=== PATIENT | male | born 1990 | race Caucasian/White ===

== ENCOUNTER 2025-03-26 23:37 | Inpatient (IN) | payer MEDICARE, SELFPAY ==
[2025-03-26] VITALS (8 sets, daily range): BP systolic 103–126; BP diastolic 70–85
[2025-03-26] MEDS: NSS 1000 IV (20:49)
--- NOTE | 2025-03-26 20:50 | ED.GENMED ---
History of Present Illness
General
Chief Complaint: Fever
Source: family (Mother)
Exam Limitations: non verbal-adult
Time Seen by Provider: 03/26/25 20:38
Nursing documentation reviewed up to this point in time: agreed with
History of Present Illness
History of Present Illness:
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 Mother reports that
patient started with some shaking last night but did not have a fever at the time, today developed a fever with a max of 103 �F at home. Was given Tylenol to treat fever. Mother has not noticed any other specific symptoms such as respiratory
issues, vomiting or diarrhea�in fact patient has had some constipation recently and required an enema yesterday. He has been dealing with healing pilonidal cyst/abscess but mother says this is generally improving.
Past History
Past History
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
Review of Systems
Review of Systems
Unable to obtain full review of systems at this time due to: non-verbal
All Other Systems: Not applicable
Phy Exam
Physical Exam
Physical Exam:
General: Awake, chronically ill-appearing
Head: Normocephalic, atraumatic
Eyes: Conjunctiva normal
Throat: Airway intact, mucous membranes slightly dry
Neck: Trachea midline
Lungs: Mild tachypnea, diminished at the lung bases
Heart: Tachycardia with regular rhythm, no murmurs, gallops, or rubs
Abd: Soft, non distended
Rectal: Some very small amount of redness in the sacrum but no large wounds�tiny punctate scar from old pilonidal cyst/abscess
Extremities: Warm and well-perfused
Scores
Heart Failure Risk
Heart Failure Risk Score: Not Applicable
Heart Score for Chest Pain Patients
STEMI patient?: Not applicable
Withdrawal Assessment of Alcohol
Withdrawal Assessment Completed?: Not applicable
Sepsis
Sepsis Screening
Sepsis Assessment: Sepsis
Sepsis Screen
Sepsis Screen: Sepsis
Date: 03/26/25
Time: 22:44
Course
Orders/Labs/Results
Orders:
Orders
03/26/25 20:38
Electrocardiogram (*1) Urgent
Reason for Study: Tachycardia
EKG- Treatment ONCE
0.9% Sodium Chloride 1000 ml [Nss] 1,000 ml IV BOLUS
Ibuprofen [Motrin] 400 mg PO NOW STA
CR Chest Portable - 1 View Urgent
Comment:
Reason For Exam: fever
Reason Study Needs to be Portable: Unable to Transport
03/26/25 20:41
Complete Blood Count/With Diff Urgent
Comprehensive Metabolic Panel Urgent
TSH Reflex To Free T4 Urgent
Blood Culture Q30M
DAVID Source: Blood/Venous
Specimen Description:
03/26/25 20:42
COVID-19 Antigen Urgent
Source: Nasal Swab
Lactate Level [Lactic Acid] Urgent
Influenza A+B Rapid Molecular Urgent
DAVID Source: Nasal Swab
Specimen Description:
03/26/25 20:49
Ketorolac [Toradol] 15 mg IV NOW STA
03/26/25 20:54
Cefepime HCl [Maxipime] 2,000 mg IV NOW STA
03/26/25 21:02
Vancomycin [Vancocin] 1,500 mg 0.9% Sodium Chloride 500 ml [Nss] 500 ml IV NOW
03/26/25 21:11
Urinalysis Reflex To Culture Urgent
Date Specimen was Collected: 03/26/25
Time Specimen was Collected: 20:40
Urine Microscopic Reflex Cult Urgent
Blood Culture Q30M
DAVID Source: Blood/Venous
Specimen Description:
Urine Culture Urgent
DAVID Source: U
Specimen Description:
Date Specimen was Collected: 03/26/25
Time Specimen was Collected: 20:40
03/26/25 21:15
Sterile Water [Sterile Water For Injection] 10 ml .ROUTE .[facility]
03/26/25 21:19
CT Chest/abd/pel W Iv Cont Urgent
Comment:
Reason For Exam: sepsis, unknown source, non verbal
Abnormal Lab Results
03/26/25 03/26/25 03/26/25
20:41 20:42 21:11
WBC 18.3 H 10^3/uL
(4.8-10.8)
Abs Immat Gran (auto) 0.2 H 10^3/uL
(0-0.05)
Absolute Neuts (auto) 16.2 H 10^3/uL
(1.4-6.5)
Absolute Lymphs (auto) 0.8 L 10^3/uL
(1.2-3.4)
Absolute Monos (auto) 1.1 H 10^3/uL
(0.1-0.6)
Immature Gran % 1.0 H %
(0-0.5)
Neutrophils % 88.4 H %
(42.2-75.2)
Lymphocytes % 4.3 L %
(20.5-51.1)
Glucose 147 H mg/dl
(70-99)
Lactic Acid 2.5 H mmol/L
(0.7-2.0)
Ur Occult Blood Reflex 2+ A
(Negative)
Leukocyte Esterase Rfl 3+ A
(Negative)
Urine RBC 7-10 A /HPF
(0-2)
Urine WBC (Reflex) 80-90 A /HPF
(0-5)
Urine Bacteria (Reflex) Moderate A
(Negative)
Urine Albumin (Reflex) 2+ A
(Neg - Trace)
03/26/25 20:41
03/26/25 20:41
Vital Signs
Initial and Last Documented VS:
Initial Vital Signs
Pulse
112
03/26/25 20:03
Last Documented Vital Signs
Temp Pulse Resp BP Pulse Ox
38.3 C H 110 20 111/80 96
03/26/25 22:29 03/26/25 22:29 03/26/25 22:29 03/26/25 20:33 03/26/25 22:29
MDM/Problems Addressed
Differential Diagnosis Includes:
Viral syndrome, pneumonia including aspiration, intra-abdominal infection, UTI
MDM/Problems Addressed:
35-year-old male presents for evaluation of fever developed over the past 24 hours. Vitals were significant for tachycardia, mild tachypnea and fever. Normotensive, not hypoxic. Exam as above. Will plan to check labs including a CBC and a CMP,
lactate and blood cultures. Viral swabs. Chest x-ray. Urinalysis. Low threshold for CT abdomen if no clear infectious source identified. Provide fluids and empiric antibiotics. Anticipate admission.
Labs reviewed: CBC shows leukocytosis to 18.3. CMP no clinically significant abnormalities. Lactate slightly elevated at 2.5�fluids in progress. Chest x-ray shows no acute disease. Viral swabs negative. UA pending. Will proceed with CT
chest/abdomen/pelvis to better evaluate for infectious source.
CT reviewed by me appears to show cystitis question mild colitis but no other acute abnormalities noted�awaiting final radiology report. His urinalysis is positive for infection with bacteria and pyuria. He already received broad-spectrum
antibiotics, IV fluids. Will admit for continued care�discussed case with hospitalist for admission.
Chronic conditions affecting care:
Advanced [place]'s disease
*Radiology
Radiology exam reviewed: preliminary read by ED provider
*Pulse Oximetry
SaO2: 96
Oxygen Mode of Delivery: Room air
Patient hypoxic: no (96%)
*EKG
Interpreted by ED Provider?: Yes
Heart Rate: 108
Rate: tachycardiac
Rhythm: sinus and sinus tachycardia
[place]: normal axis
Interval: normal interval
QRS Pattern: normal QRS
Ischemia: no ischemia
*Critical Care Note
Total Time (30-74mins, 75-104mins- exclusive of procedures): Not Applicable
Data Reviewed
Review of Other/Old Records Reveals: Labs and Records
Source: records and family
Patient Management
Discussion with other providers: Hospitalist (Discussed with hospitalist)
Escalation/DeEscalation of care consider admission/obs:
Admission indicated
ED Attending Note
-
Portions of this chart may have been created with voice recognition software.� Occasional wrong word or��sound alike� substitutions may have occurred due to the inherent limitations of voice recognition software.
Discharge Plan
Departure
Patient Disposition: Admit
Date of Disposition: 03/26/25
Time of Disposition: 22:43
Admit to doctor: Vitor
Presentation/result/management discussed w/ accepting MD/DO: Hospitalist
Discharge Problem:
Acute UTI, Sepsis
Interventions
Interventions:
*Risk Screen - Suicide Last Done: 03/26/25 20:24
*General Assessment Last Done: 03/26/25 21:44
*Neglect/Abuse Screening Last Done: 03/26/25 20:24
*ED- Fall Risk Assessment Last Done: 03/26/25 20:24
*ED COVID-19 Vaccine History Last Done: 03/26/25 20:24
*ED Influenza Vaccine History Last Done: 03/26/25 20:24
ED- Neurological Assessment Last Done: 03/26/25 21:44
ED-Skin Assessment Last Done: 03/26/25 21:44
Discharge Date and Time
Print Language: CONGOLESE
[2025-03-26 20:54] LABS: Hematocrit 45.0 % (39.0-52.0); Hemoglobin 15.1 g/dL (13.0-18.0); Mean Corp Hgb Conc. 33.6 g/dL (33.0-37.0); Mean Corpuscular Volume 85.1 fL (80.0-94.0); Nucleated Red Blood Cells % 0 % (-); Platelet Count 247 10^3/uL (130-400); Red Cell Dist. Width 12.2 % (11.5-14.5)
[2025-03-26] MEDS: TORADOL 15 MG IV (20:56)
[2025-03-26 21:12] LABS: COVID-19 Antigen Negative (Negative)
[2025-03-26 21:13] LABS: ALT (SGPT) 29 U/L (0-50); AST (SGOT) 29 U/L (17-59); Albumin 4.9 g/dl (3.5-5.0); Alkaline Phosphatase 79 U/L (38-126); Blood Urea Nitrogen 10 mg/dl (9-20); Calcium 9.7 mg/dl (8.4-10.2); Carbon Dioxide 27 mmol/L (22-30); Chloride 104 mmol/L (98-107); Estimated Creatinine Clearance 85 ml/min; Glucose 147 mg/dl (70-99); Potassium 3.8 mmol/L (3.5-5.1); Sodium 142 mmol/L (135-145); Total Protein 8.1 g/dl (6.3-8.2); eGFR > 60.00
[2025-03-26] MEDS: MAXIPIME 2000 MG IV (21:18)
[2025-03-26] MEDS: VANCOCIN 530 MG IV (21:19)
[2025-03-26 21:22] LABS: Urine Character Cloudy (Clear)
[2025-03-26 21:37] LABS: Urine Squamous Cell 0-2 /LPF (Few); Urine White Cell 80-90 /HPF (0-5)
--- NOTE | 2025-03-26 22:57 | HPS.HSE ---
Family Physician
-
Family Physician: Angelica Brower
Chief Complaint
-
fever
History of Present Illness
Patient is a 35-year-old male with past medical history significant for Dion Disease who presented to [facility] ED for evaluation of fever. Patient mother at bedside who assisted with HPI. 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
She reports that last evening patient was moaning but no fevers or other symptoms observed. By this afternoon patient had fever with T-max 103 and rigors. She states he had a UTI several years ago but was not this bad. She states since December he has
been treated for PNA and influenza and now a UTI. She is primary caregiver with 24-hour aides for assistance. Patient requires enemas every 3 days for bowel movement, last enema this morning and was effective.
Medical History
Past Medical History
Past Medical History: Reports Other
Additional Past Medical History:
[place] Disease
Past Surgical History: Reports None
Social History
Unable to obtain full social history at this time due to: Patient Non-verbal
Tobacco: Non-smoker
Alcohol: None
Drug: None
Personal: Single
Living: With Family
Employment: Disabled
Family History
Family History: Not pertinent
Allergies / Home Medications
Allergies reflects when Allergies were last updated in [facility].
Home Medications with original date entered in [facility]
Allergy/Medication List:
Medications on admission are unable to be verified or confirmed at this time.
If medication reconciliation has not been performed, why?: Other (nursing to review with patient mother )
Review of Systems
-
History Source: Family
Constitutional: Reports Fever and Chills
EENT: Denies Sore Throat
Respiratory: Denies Cough or Trouble Breathing
Cardiac: Denies Chest Pain, Diaphoresis, Palpitations or Syncope
Abdomen/GI: Reports Constipated; Denies Abdominal Pain, Nausea, Vomiting or Diarrhea
: Denies Dysuria, Frequency or Urgency
Musculoskeletal: Denies Joint Swelling
Skin: Denies Rash
Neurological: Denies Dizzy, Headache, Weakness or Numbness
Physical Exam
Vital Signs
Vital Signs
Temp Pulse Resp BP Pulse Ox
100.9 F H 110 20 111/80 96
03/26/25 22:29 03/26/25 22:29 03/26/25 22:29 03/26/25 20:33 03/26/25 22:29
Physical Exam
General: Appears Chronically Ill and Cachectic
HEENT: NormoCephalic and Atraumatic
Respiratory: Rhonchi (scattered ) and Decreased Breath Sounds
Cardiac: S1/S2, Regular Rhythm and Tachycardia; No Murmur, Rub or Gallop
GI: Soft, Non Tender, Non Distended and Normal Bowel Sounds
Musculoskeletal: No Clubbing, No Cyanosis and No Edema
Skin: Warm and IV/Catheter Site
Neuro: Sedated
Laboratory Results
-
03/26/25 20:41
03/26/25 20:41
Laboratory Results
Lactic Acid 2.5 mmol/L (0.7-2.0) H 03/26/25 20:42
Total Bilirubin 0.6 mg/dl (0.2-1.3) 03/26/25 20:41
AST 29 U/L (17-59) 03/26/25 20:41
ALT 29 U/L (0-50) 03/26/25 20:41
Alkaline Phosphatase 79 U/L (38-126) 03/26/25 20:41
Data Reviewed
-
CT Scan: Report Reviewed by me (Chest/Abd/Pel: Multiple small nodular opacities within the left lower lobe of the lung, which is likely a small airway pneumonia. Mild dependent atelectasis in the posterior lungs bilaterally. The wall the urinary
bladder appears mildly diffusely thickened, suggesting possibility of cystitis. Smal)
Lab Data: Labs Reviewed by me (WBC 18.3, Neut 88.4, Lactic 2.5)
Impression/Plan
-
IMPRESSION/PLAN:
#sepsis 2/2 complicated UTI vs. PNA vs. cystitis vs. proctitis
WBC 18.3, Neut 88.4, Lactic 2.5
EKG: SINUS TACHYCARDIA
T WAVE ABNORMALITY, CONSIDER ANTEROLATERAL ISCHEMIA
Chest/Abd/Pel CT: Multiple small nodular opacities within the left lower lobe of the lung, which is likely a small airway pneumonia.
Mild dependent atelectasis in the posterior lungs bilaterally.
The wall the urinary bladder appears mildly diffusely thickened, suggesting possibility of cystitis. Small focus of air within the right anterior bladder, most likely from instrumentation.
Mild enhancement and thickening of the wall the inferior rectum, suggestive of proctitis. The appendix appears normal with no evidence for biliary ductal dilation.
Influenza: negative
Covid: negative
UA: indicative of UTI
Urine Cx: pending
Blood Cx: pending
- Admit to IMU
- IV Cefepime and Vanco
- IVF NSS 80cc/hr
- supportive care
#[place]ston Disease
*home med rec pending, continue home regimen as indicated*
Code status: DNR
DVT prophylaxis: heparin sq
[2025-03-26] MEDS: OFIRMEV 100 IV (23:04)
--- NOTE | 2025-03-26 23:14 | W.PN.UPDATE ---
Update Note
Progress Note Update
I could not get any information from the patient is very letahrgic
Information gathered by chart review and speaking with the ER staff.
This note serves as an addendum to the H&P by yard switcher ALISHA�
Deepa Rod
HPI
35M HX advanced Downey's disease, nonverbal and totally dependent for ADLs seen at ER
- pw his mother who is his primary caregiver for evaluation of fever.
- Mother reports that patient started with some shaking last night but did not have a fever at the time
- today developed a fever with a max of 103 �F at home.
- Was given Tylenol to treat fever.
- Mother has not noticed any other specific symptoms such as respiratory issues, vomiting or diarrhea�in fact patient has had some constipation recently and required an enema yesterday.
- He has been dealing with healing pilonidal cyst/abscess but mother says this is generally improving.
PHX;l see above
Relevant VS
Vital Signs
Temp Pulse Resp BP Pulse Ox
100.9 F H 110 20 111/80 96
03/26/25 22:29 03/26/25 22:29 03/26/25 22:29 03/26/25 20:33 03/26/25 22:29
PE
Gen: Awake, chronically ill-appearing
HEENT: anicteric
Neck: supple
Lungs: CTA
Cor: RRR S S2
Abdomen:�soft
TRICIA per ER - very small amount of redness in the sacrum. N large wounds
iny punctate scar from old pilonidal cyst/abscess
MS: warm
Relevant Data
03/26/25
20:41
WBC 18.3 H
Hgb 15.1
Plt Count 247
03/26/25 03/26/25
20:41 20:42
Creatinine 0.9
eGFR > 60.00
Lactic Acid 2.5 H
03/26/25
21:11
Urine Nitrite (Reflex) Negative
Leukocyte Esterase Rfl 3+ A
Urine RBC 7-10 A
Urine WBC (Reflex) 80-[address] AP
- Multiple small nodular opacities within the left lower lobe of the lung, which is likely a small airway pneumonia.
- Mild dependent atelectasis in the posterior lungs bilaterally.
- The wall the urinary bladder appears mildly diffusely thickened, suggesting possibility of cystitis.
Small focus of air within the right anterior bladder, most likely from instrumentation.
- Mild enhancement and thickening of the wall the inferior rectum, suggestive of proctitis.
- The appendix appears normal with no evidence for biliary ductal dilation.
Last hospitalist admission: Date of Admission: 04/29/23 - Date of Discharge: 04/30/23
Principal Diagnosis: Fever, likely due to viral URI
Chronic Diagnoses: Downey's disease
ASSESSMENT & PLAN
Pending Rx reconciliation
Severe sepsis ( T > 100.5, HR > 90, WCC > 10, LA > 2 ) due to presumed male complicated UTI
- Other possible sources: small airway PNA, cystitis, proctitis
- associated hypoactive lethargic TME
- BP stable.
- UCx and BCx sent Cultures sent.
- CT C/A/P done
- looks like UTI, maybe some colitis
- Pending CT final report pending
- IVF
- empiric IV vanco/cefepime.
- BCx and UCx sent
HX advanced Dion's disease, nonverbal and totally dependent for ADL
- very involved Mother at bed side
- HX acute behavioral dysfunction
- If any agitation , may need 1 to 1 on top of meical restraints
DVT Px: SQH
Code: DNR
IMU
[2025-03-26] MEDS: NSS 500 IV (23:17)
[2025-03-27] VITALS (39 sets, daily range): BP systolic 82–153; BP diastolic 51–96; BMI 20.3
[2025-03-27] MEDS: NSS 1000 IV ×4 (00:53→20:13)
[2025-03-27] MEDS: HEPARIN 5000 UNITS SC ×2 (01:43→09:23)
[2025-03-27] MEDS: STERILE WATER FOR INJECTION 10 ML IV ×4 (01:44→20:06)
[2025-03-27] MEDS: MAXIPIME 1000 MG IV ×4 (01:44→20:06)
[2025-03-27] MEDS: NSS 500 IV ×2 (01:52→04:34)
[2025-03-27 06:47] LABS: Hematocrit 32.4 % (39.0-52.0); Hemoglobin 10.9 g/dL (13.0-18.0); Mean Corp Hgb Conc. 33.6 g/dL (33.0-37.0); Mean Corpuscular Volume 84.2 fL (80.0-94.0); Platelet Count 200 10^3/uL (130-400); Red Cell Dist. Width 12.4 % (11.5-14.5)
[2025-03-27 07:09] LABS: Blood Urea Nitrogen 9 mg/dl (9-20); Calcium 8.0 mg/dl (8.4-10.2); Carbon Dioxide 22 mmol/L (22-30); Chloride 114 mmol/L (98-107); Estimated Creatinine Clearance 110 ml/min; Glucose 104 mg/dl (70-99); Potassium 3.7 mmol/L (3.5-5.1); Sodium 139 mmol/L (135-145); eGFR > 60.00
--- NOTE | 2025-03-27 08:22 | PHA.VAN.IN ---
Assessment
- Assessment
Renal Function: Appears similar to baseline
Concomitant Antimicrobials: cefepime
AUC Dosing Plan
- Dosing Variables
Dosing Weight (kg): 53
Dosing CrCl (ml/min): 110
Vd coefficient (L/kg): 0.7
- Empiric Dosing
Initial / Loading Dose: 1500mg - 03/26 21:19
Maintenance Regimen: Vanc 1000mg Q12H - give 500mg x1 now then start at 1800
Estimated AUC (mcg*h/mL): 590
Estimated Peak (mcg*h/mL): 39.5
Estimated Trough (mcg/ml): 13.8
Estimated Half Life (H): 7.2
Regimen predicts values at higher end of range but given age, expect patient will clear more than predicted by population PK
- Monitoring
No levels ordered at this time: consider levels in next few days
Pharmacokinetics Vancomycin I
- -
Patient Age: 35
Patient Sex: Male
Vancomycin Day #: 1
Indication: Genito-Urinary Tract
Requesting Provider: Armando Rod
Pertinent Antimicrobial Allergies:
amoxicillin/clavulanic acid - unknown
clarithromycin - unknown
Height / Weight:
Height 5 ft 4 in
Actual Weight 53.1 kg
Pertinent Past Medical History: [place]'s disease
- Vital Signs / Lab Results
Temp Pulse Resp BP Pulse Ox
99.6 F 96 17 95/62 93
03/27/25 06:08 03/27/25 08:00 03/27/25 08:00 03/27/25 08:00 03/27/25 08:00
Lab Results - Hematology
03/26/25 03/27/25
20:41 06:16
WBC 18.3 H 21.4 H
Lab Results - Chemistry
03/26/25 03/27/25
20:41 06:16
BUN 10 9
Creatinine 0.9 0.7
Estimated Creat Clear 85 110
Albumin 4.9
03/26/25 03/27/25
20:42 07:15
Lactic Acid 2.5 H 1.1
Lab Results - Urine
03/26/25
21:11
Urine Nitrite (Reflex) Negative
Leukocyte Esterase Rfl 3+ A
Urine WBC (Reflex) 80-90 A
Ur Squamous Epith Cells 0-2
Urine Bacteria (Reflex) Moderate A
Microbiology Results
03/26/25 20:42 Influenza Types A & B (LUZ ELENA) - Final
Nasal Swab Negative for Influenza A & B, NAAT
Negative results must be combined with clinical observations
and patient history.
Nucleic Acid Amplification test (NAAT)performed on the
[employer] platform.
--- NOTE | 2025-03-27 09:29 | W.PN.HOSP.TC ---
Today's Communication/Plan
-
Total Critical Care Time__55___ minutes. I was immediately available to the patient and staff. I personally examined, reviewed labs, diagnostic images/reports, interpretations, treatment plans, discussed patient care with other providers and
family or caregivers (if patient is unable to make decisions), entered orders as appropriate and documented the medical record.
Assessment / Plan
Assessment / Plan
Impression
Severe sepsis.
Septic shock with hypotension not responding to IV fluid bolus
Lactic acidosis
Toxic metabolic encephalopathy.
Suspect severe aspiration syndrome
Urinary retention
Conditions prior to admission
[place] disease.
Premature .
Functional quadriplegia.
Right eye blindness.
Severe malnutrition with BMI of [address] chest/abdomen/pel
IMPRESSION: Multiple small nodular opacities within the left lower lobe of the lung, which is likely a small airway pneumonia.
Mild dependent atelectasis in the posterior lungs bilaterally.
The wall the urinary bladder appears mildly diffusely thickened, suggesting possibility of cystitis. Small focus of air within the right anterior bladder, most likely from instrumentation.
Mild enhancement and thickening of the wall the inferior rectum, suggestive of proctitis. The appendix appears normal with no evidence for biliary ductal dilation.
Plan
Severe sepsis with septic shock not responding to initial IV fluid bolus
Lactic acidosis.
Presentation with fever and altered mental status suggestive for toxic metabolic encephalopathy.
Possible sources most likely aspiration syndrome/aspiration pneumonia (CT with evidence of left lower lobe infiltrate)
Possible UTI given abnormal urinalysis and history of retention
Possible stercoral colitis/proctitis given chronic constipation.
Transferred to ICU
Initiated on broad-spectrum antibiotics including vancomycin and cefepime pending cultures
Strict aspiration precautions with NPO. Speech and swallow evaluation
Bladder scan, if recurrent retention, will require Johns catheter
Continue isotonic IV fluids
Given persistent hypotension, start Lavelle-Synephrine titrating to MAP 55-60
Check cortisol level. Consider pulsed dose of systemic steroids
Trend lactic acid
Upper Inspector consultation.
[place] disease.
Mother reports premature .
Functional quadriplegia.
Preadmission neurologic regimen: Alprazolam, Lexapro, Seroquel, risperidone, Topamax, trazodone. Held due to acute state as well as aspiration risk. Monitor mental status closely. Consider IV benzodiazepines if agitation or symptoms of
benzodiazepine withdrawal. Potential for multiple interactions not limited to CONFERENCE SERVICES MANAGER suppression. May consider neurology/psychiatry evaluation for optimizing regimen once hemodynamically stable and able to have oral intake.
DNR.
DVT prophylaxis heparin
Anticipated Discharge: > 48 hours
Subjective/Interval History
-
Date of Service: March 27, 2025
Objective Data
-
Labs:
Laboratory Results
03/27/25
06:16
WBC 21.4 H
Hgb 10.9 L D
Hct 32.4 L
Plt Count 200
Sodium 139
Potassium 3.7
Chloride 114 H
Carbon Dioxide 22
BUN 9
Creatinine 0.7
Glucose 104 H
Calcium 8.0 L D
Vital Signs:
Vital Signs
Temp Pulse Resp BP Pulse Ox
99.6 F 96 17 95/62 93
03/27/25 06:08 03/27/25 08:00 03/27/25 08:00 03/27/25 08:00 03/27/25 08:00
I&O
03/26/25 03/27/25 03/28/25
06:59 06:59 06:59
Output Total 825 / 825
Balance -825 / -825
Physical Exam
-
General: Well Developed and No Apparent Distress
HEENT: Normocephalic, Atraumatic and Moist Mucous Membranes
Respiratory: Rhonchi and Decreased Breath Sounds; Negative Wheezes
Cardiac: Regular Rhythm and S1/S2; Negative Murmur, Rub or Gallop
GI: Soft, Nontender, Nondistended and Normal Bowel Sounds; Negative Organomegaly
Rectal: Deferred by Provider
Musculoskeletal: No Clubbing, No Cyanosis and No Edema
Skin: Negative Rash
Neuro: Other (Lethargic. Noncommunicative)
[2025-03-27] MEDS: VANCOCIN HCL 500 MG 100 IV (09:30)
[2025-03-27 10:46] LABS: Glucose - Point of Care 114 mg/dl (70-99)
--- NOTE | 2025-03-27 11:09 | CON.INTV ---
Consultation
Consultation Request
Date/Time Consultation Requested: 03/27/25, 09:29
Date/Time Consultation Performed: 03/27/25, 11:00
Medical History
-
Chief Complaint: Fevers, shaking
History of Present Illness:
Patient is a 35-year-old M with a PMH notable for [place]'s disease (advanced stage, nonverbal, unable to perform ADLs without assistance), chronic constipation, recent infected pilonidal cyst, recent aspiration pneumonia, who presented 03/26 with
fever and worsening shaking from home, admitted for severe sepsis.
On presentation, patient was found to have fever to 101.9, WBC elevated to 18.3, lactate elevated to 2.5. UA with elevated WBCs, leuk esterase, albumin, moderate bacteria. CXR with LLL infiltrate. CTAP: Multiple small nodular opacities within the
left lower lobe of the lung, which is likely a small airway pneumonia. Mild dependent atelectasis in the posterior lungs bilaterally. The wall the urinary bladder appears mildly diffusely thickened, suggesting possibility of cystitis. Small focus of
air within the right anterior bladder, most likely from instrumentation. Mild enhancement and thickening of the wall the inferior rectum, suggestive of proctitis. The appendix appears normal with no evidence for biliary ductal dilation.
Per mom - who is very involved in patient's daily ADLs/care, along with home health aides -patient began to have fevers at home with worsening shaking of upper extremities; she gave him Tylenol and came to hospital. Patient has had no coughing at
home. Sometimes he is choke on food. Mom states special pur�ed diet for patient. Patient is nonverbal, not well able to express symptoms. Per mom, has not endorsed any specific localizing pain to palpation at home. Patient does have chronic
urinary retention, at times requiring straight catheterization at home. He typically wears a condom catheter draining to leg bag when out of the house. However, he may go more than half the day without urinating, and will require straight
catheterization. Per mom, this is closely tied with his chronic constipation for which he requires regularly scheduled enemas. He was last treated for a UTI 3 years ago. States that they are very vigilant about pressure ulcer prevention and
checking his skin. States that
The patient was recently admitted in December for management of presumed aspiration pneumonia and finished antibiotic course for that. Per mom, he just finished taking course of clindamycin 2 weeks ago. He also was recently seen by [facility]
colorectal surgery for infected pilonidal cyst. Mom has been applying clotrimazole cream and mupirocin ointment to pilonidal/rectal fissure area, with improvement in erythema following the clotrimazole cream. Denies any purulent drainage from the
area. Unable to ascertain if there has been acute worsening or improvement in erythema, but sounds like not improvement.
On 03/27, patient was transferred to ICU due to low BP not responding to IVF bolus, lactic acidosis, altered mental status. Roller Die Cutting Machine Operator consulted for ongoing management. Consults below.
Past Medical History
Past Medical History: Other (tammy's disease )
Social History
Tobacco: Non-smoker
Alcohol: None
Drug: None
Living: With Family and Other (home nursing)
Family History
Family History: Reviewed & Not Pertinent
Allergies / Home Medications
Allergies
Allergy/AdvReac Type Severity Reaction Status Date / Time
amoxicillin (From Augmentin) Allergy Unknown Verified 04/29/23 20:23
clarithromycin (From Biaxin) Allergy Unknown Verified 04/29/23 20:23
clavulanic acid (From Allergy Unknown Verified 04/29/23 20:23
Augmentin)
lorazepam (From Ativan) Allergy Unknown Verified 04/29/23 20:23
metformin Allergy Unknown Verified 04/29/23 20:23
Home Medications
�Medication �Instructions �Recorded �Confirmed �Last Taken �Type
acetaminophen 325 mg tablet 325 mg PO QHS 03/26/25 03/26/25 Unknown History
(Tylenol)
acetaminophen 325 mg tablet 500 mg PO Q8AM 03/26/25 03/26/25 Unknown History
(Tylenol)
alprazolam 0.25 mg tablet 0.25 mg PO BID 03/26/25 03/26/25 Unknown History
alprazolam 1 mg tablet 1 mg PO BID 03/26/25 03/26/25 Unknown History
escitalopram oxalate 10 mg tablet 15 mg PO R Q48H 03/26/25 03/26/25 Unknown History
(Lexapro)
escitalopram oxalate 20 mg tablet 20 mg PO Q48H 03/26/25 03/26/25 Unknown History
(Lexapro)
melatonin 10 mg tablet 10 mg PO HS 03/26/25 03/26/25 Unknown History
pindolol 5 mg tablet 5 mg PO BID 03/26/25 03/26/25 Unknown History
quetiapine 100 mg tablet (Seroquel) 100 mg PO HS 03/26/25 03/26/25 Unknown History
quetiapine 25 mg tablet (Seroquel) 25 mg PO HS 03/26/25 03/26/25 Unknown History
risperidone 1 mg tablet 1 mg PO BID 03/26/25 03/26/25 Unknown History
topiramate 50 mg tablet (Topamax) 50 mg PO BID 03/26/25 03/26/25 Unknown History
trazodone 50 mg tablet 50 mg PO HS 03/26/25 03/26/25 Unknown History
Review of Systems
-
Unable to Obtain full review of systems at this time due to: Patient Non Verbal
History Source: Family
Abdomen/GI: Constipated
: Difficulty Voiding
Vitals / Labs / Diagnostic Testing
Vital Signs
Temp Pulse Resp BP Pulse Ox
99.6 F 91 12 102/84 97
03/27/25 06:08 03/27/25 10:00 03/27/25 10:00 03/27/25 10:00 03/27/25 10:00
Lab Data
03/27/25 06:16
03/27/25 06:16
Microbiology
03/26/25 20:42 Nasal Swab Influenza Types A & B (LUZ ELENA) - Final
Negative for Influenza A & B, NAAT
Negative results must be combined with clinical observations
and patient history.
Nucleic Acid Amplification test (NAAT)performed on the
[employer] platform.
Diagnostic Testing:
Physical Exam
-
HEENT: Normocephalic and Anicteric
Cardiovascular: Regular Rhythm and Peripheral Edema (none)
Respiratory: Clear (anteriorly) and Non-Labored Respirations
GI: Soft, Non Distended and Non Tender (no suprapubic tenderness)
Neurology: Awake and Other (neuro deficit)
Skin: Warm, Dry and Good Color
General: Other (appears slightly syndromic, mouth open, nonverbal )
Assessment
-
Diony Hi is a 35-year-old M with a PMH notable for [place]'s disease (advanced stage, nonverbal, unable to perform ADLs without assistance), chronic constipation, recent infected pilonidal cyst, recent aspiration pneumonia, who presented
03/26 with fever and worsening shaking from home, admitted for severe sepsis. On 03/27, patient transferred to ICU due to low BP not responding to IVF bolus, lactic acidosis, altered mental status. Roller Die Cutting Machine Operator consulted for ongoing management.
Consults below.
#Septic shock, likely secondary to UTI
#Toxic metabolic encephalopathy, resolving
Patient presented with fevers (101.9), elevated white count (18.3). Lactate elevated to 2.5 on 03/26. Flu, COVID-negative. CXR 03/26: 'Subtle mild parenchymal opacity within the LLL.' CT A/P 03/26: ' Multiple small nodular opacities within LLL of
lung; mild dependent atelectasis bilaterally; urinary bladder wall mildly diffusely thickened, small focus of air within right anterior bladder; mild enhancement and thickening of the wall of inferior rectum, suggestive of proctitis.' UA 03/26:
Cloudy, cloudy, 2+ occult blood, 3+ leuk esterase, RBC 7-10, WBC 80-90, urine bacteria moderate, albumin 2+.
Infectious etiology ddx: UTI (most likely, given UA results and history per mom of chronic retention with intermittent straight cath at home) vs. aspiration PNA (per mom, patient does sometimes choke while eating, eats a special pur�ed diet; per
mom, patient has had these same opacities in LLL on prior admissions last month; would expect aspiration to be in right lower lobe; patient without respiratory symptoms/cough) vs. pilonidal cyst infection (recent infection, being treated with
topical clotrimazole and mupirocin; no purulent drainage, perhaps some worsening of erythema) vs. proctitis (finding C/F proctitis on CTAP; patient does have chronic constipation require scheduled enema; no abdominal tenderness to palpation on
exam).
AMS on 10/10 AM likely secondary to ongoing infection/toxic metabolic encephalopathy. However, on transfer to ICU, patient's mental status was improved/near baseline, per mom at bedside.
Lactate: 2.5> 1.1; WBC: 18.3> 21.4
MAP: 80, HR: 91, RR: 12; O2 sat 97% on RA
Pressors: None (phenylephrine ordered, not given)
- Blood cultures pending
- Urine cultures pending
- Continue IV vancomycin and cefepime, narrow as appropriate as cultures return
- Continue IVF
- Maintain MAP greater than 65
- Bladder scan to monitor for recurrent retention
- Condom catheter draining to bag
- Cortisol level pending, per primary team
#Chronic
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
#Global
- DVT PPx: Subq heparin
- Diet: NPO, pending speech eval
- Code: DNR
- Dispo: Downgrade to IMU if patient remains off pressors today
Data Reviewed
-
EKG: Report reviewed by me
Radiology: Report reviewed by me
CT Scan: Report reviewed by me
Labs: Labs reviewed by me
Critical Care Time (in minutes): 45
Total Time Spent with Patient (in minutes): 15
--- NOTE | 2025-03-27 11:45 | PTOTSP ---
Speech Language Pathology
Pt seen for clinical bedside swallow evaluation. Mother and father present. P.O. trials of puree and thin liquids provided by mother who fed pt. Thin liquids provided via nosey cup and puree via tsp. Frequently providing multiple sips in a row
with labial leakage. Audible swallow noted with wet coughing consistently with both puree and thin liquids. Mother stated this is typical swallow. Discussed signs of aspiration and potential risks for this. She was adamant that current PNA is
the same PNA from 3 months ago, which never cleared, and that his issue currently is UTI only. Pt is likely aspirating consistently with P.O. intake. Mother aware he may be aspirating, and wants him to continue to eat/drink baseline diet of IDDSI
Level 4 (Puree) and Thin liquids despite this. Instrumental swallowing assessment not indicated at this time, as pt does not tolerate thickener per mother report, and she wants him to continue P.O. diet regardless. She does not seem to think he is
at risk for aspiration PNA or that current PNA is new/aspiration related.
Pt is unable to actively participate in therapy. PREASSEMBLER AND INSPECTOR to sign off.
--- NOTE | 2025-03-27 12:55 | PTCARENOTE ---
Received pt via stretcher from ER into rm [id number] @ approx 1100. Pt. max assisted from stretcher to bed; complete hygiene provided. Hx end stage [place]'s disease; cognitively impaired/nonverbal @ baseline. SR on monitor. Afebrile. SpO2 99% on
RA; occ distribution center manager strong moist cough. Auscultated coarse breath sounds throughout. Inc b/b. #[address] draining yellow urine. Healed pressure injury on sacrum. Contracted UE @ elbows; b/l foot drop. NSS @ 125mL/hr infusing via #18 MARIA ELENA. Pt.'s
parents @ bedside, updated on plan of care. Repositioned per protocol. Safe environment maintained.
--- NOTE | 2025-03-27 15:00 | PTCARENOTE ---
During LIBRARY CIRCULATION CLERK eval; pt.'s mother demonstrating home feeding techniques to LIBRARY CIRCULATION CLERK. Pt. w obvious s/s of aspiration during demonstration. Pt.'s mother adamant on keeping pt.'s diet the same as home diet (purred w thins) despite s/s of asp. Mother informed
of asp risk and accepts risk; relayed to Dr. Kulkarni and diet advanced to pureed w thins.
--- NOTE | 2025-03-27 16:26 | W.PN.UPDATE ---
Update Note
Progress Note Update
Patient has remained hemodynamically stable after IV fluid resuscitation.
No vasopressor requirement
No need for central line access
Will obtain a midline
Follow cultures
Continue antibiotics
Maintain intermediate care unit level of care.
Father was updated by Dr. Jensen at the bedside 03/27/2025.
Critical care team will remain as standby and only see on as needed basis.
Please call with questions
[2025-03-27] MEDS: VANCOCIN 200 IV (17:20)
[2025-03-27] MEDS: LOVENOX 40 MG SC (17:21)
--- NOTE | 2025-03-27 20:00 | PTCARENOTE ---
Received pt. at 1900. Pt. currently in bed. Drowsy but opens eyes to verbal stimuli. Pt. is non-verbal at baseline. Does not show any signs/symptoms of pain currently. Afebrile. Heart rhythm sinus. Blood pressure normotensive. Currently on room air.
Lungs have audible crackles at bases. Abdomen round, non-tender. Incontinent of urine. Condom catheter in place. Skin as documented. Pt. mother and private caregiver at bedside. Discussed plan of care. Vital signs stable at this time.
[2025-03-27] MEDS: RISPERDAL 1 MG PO (20:05)
[2025-03-27] MEDS: XANAX 1 MG PO (20:05)
[2025-03-27] MEDS: XANAX 0.25 MG PO (20:05)
[2025-03-27] MEDS: TOPAMAX 50 MG PO (20:06)
[2025-03-27] MEDS: DESYREL 50 MG PO (21:42)
[2025-03-27] MEDS: TYLENOL 325 MG PO (21:42)
[2025-03-27] MEDS: MELATONIN 10 MG PO (21:42)
[2025-03-27] MEDS: SEROQUEL 100 MG PO (21:42)
[2025-03-27] MEDS: SEROQUEL 25 MG PO (21:42)
[2025-03-28] VITALS (8 sets, daily range): BP systolic 99–127; BP diastolic 63–90; BMI 20.4
--- NOTE | 2025-03-28 | PTCARENOTE ---
Pt. assessment unchanged. Remains in bed. His home support worker is at bedside. Vital signs stable at this time.
[2025-03-28] MEDS: STERILE WATER FOR INJECTION 10 ML IV ×4 (03:13→20:00)
[2025-03-28] MEDS: MAXIPIME 1000 MG IV ×4 (03:13→19:59)
[2025-03-28] MEDS: NSS 1000 IV ×3 (03:47→23:08)
[2025-03-28 03:56] LABS: Hematocrit 31.9 % (39.0-52.0); Hemoglobin 10.9 g/dL (13.0-18.0); Mean Corp Hgb Conc. 34.2 g/dL (33.0-37.0); Mean Corpuscular Volume 83.9 fL (80.0-94.0); Nucleated Red Blood Cells % 0 % (-); Platelet Count 196 10^3/uL (130-400); Red Cell Dist. Width 12.4 % (11.5-14.5)
--- NOTE | 2025-03-28 04:00 | PTCARENOTE ---
Pt. assessment remains unchanged. AM labs drawn. Hygiene care performed. Vital signs stable at this time.
--- NOTE | 2025-03-28 04:00 | PTCARENOTE ---
Pt. assessment remains unchanged. AM labs drawn. Teresa
[2025-03-28 04:19] LABS: Blood Urea Nitrogen 7 mg/dl (9-20); Calcium 8.6 mg/dl (8.4-10.2); Carbon Dioxide 20 mmol/L (22-30); Chloride 116 mmol/L (98-107); Estimated Creatinine Clearance 111 ml/min; Glucose 124 mg/dl (70-99); Potassium 3.7 mmol/L (3.5-5.1); Sodium 140 mmol/L (135-145); eGFR > 60.00
[2025-03-28] MEDS: VANCOCIN 200 IV (05:17)
[2025-03-28] MEDS: TYLENOL 500 MG PO (07:37)
[2025-03-28] MEDS: TOPAMAX PO (07:37)
[2025-03-28] MEDS: LEXAPRO PO (07:38)
[2025-03-28] MEDS: RISPERDAL PO (07:38)
[2025-03-28] MEDS: XANAX PO ×4 (07:38→09:21)
[2025-03-28] MEDS: TOPAMAX 50 MG PO ×2 (09:28→19:59)
[2025-03-28] MEDS: RISPERDAL 1 MG PO ×2 (09:29→19:59)
[2025-03-28] MEDS: LEXAPRO 20 MG PO (09:29)
--- NOTE | 2025-03-28 10:35 | CM ---
Hospice consult placed.
--- NOTE | 2025-03-28 10:52 | PTCARENOTE ---
Addendum entered by Rosalba Lora RN 03/28/25 11:17:
patient lifted into own wheelchair by paid caregiver. paid behavioral health care coordinator and mother feeding patient per patient mother request.. instructed on aspiration precautions, to alert staff if patient is pocketing foods. call howard in reach
Original Note:
report received, assessments per work list. patient without a gag reflex. patient mother at bedside, refusing some medications. requesting to speak with the hospitalist re medication regime. Dr Sun at bedside. down grade to med surg level of care
--- NOTE | 2025-03-28 11:27 | W.PN.HOSP.TC ---
Today's Communication/Plan
-
Antibiotics
Assessment / Plan
Assessment / Plan
Physical exam:
General: Acutely ill
HEENT: Normocephalic, Atraumatic and Moist Mucous Membranes
Respiratory: Clear to Auscultation; Negative Wheezes, Rales or Rhonchi
Cardiac: Regular Rhythm and S1/S2
GI: Soft, Nontender and Nondistended
Musculoskeletal: Contracted, no joint effusions.
Neuro: Awake, noncommunicative as baseline, does moan and shake his head at times with questions.
Impression
Severe sepsis.
Septic shock with hypotension not responding to IV fluid bolus
Lactic acidosis
Toxic metabolic encephalopathy.
Suspect severe aspiration syndrome
Urinary retention
Conditions prior to admission
[place] disease.
Premature .
Functional quadriplegia.
Right eye blindness.
Severe malnutrition with BMI of 20
[address] chest/abdomen/pel
IMPRESSION: Multiple small nodular opacities within the left lower lobe of the lung, which is likely a small airway pneumonia.
Mild dependent atelectasis in the posterior lungs bilaterally.
The wall the urinary bladder appears mildly diffusely thickened, suggesting possibility of cystitis. Small focus of air within the right anterior bladder, most likely from instrumentation.
Mild enhancement and thickening of the wall the inferior rectum, suggestive of proctitis. The appendix appears normal with no evidence for biliary ductal dilation.
Plan
Severe sepsis with septic shock not responding to initial IV fluid bolus
Lactic acidosis.
Presentation with fever and altered mental status suggestive for toxic metabolic encephalopathy.
Possible sources most likely aspiration syndrome/aspiration pneumonia (CT with evidence of left lower lobe infiltrate)
Possible UTI given abnormal urinalysis and history of retention
Possible stercoral colitis/proctitis given chronic constipation.
Transferred to ICU
Initiated on broad-spectrum antibiotics including vancomycin and cefepime pending cultures
Strict aspiration precautions with NPO. Speech and swallow evaluation
Bladder scan, if recurrent retention, will require Johns catheter
Continue isotonic IV fluids
Given persistent hypotension, start Lavelle-Synephrine titrating to MAP 55-60
Check cortisol level. Consider pulsed dose of systemic steroids
Trend lactic acid
Credit And Collections Analyst consultation.
Dion disease.
Mother reports premature .
Functional quadriplegia.
Preadmission neurologic regimen: Alprazolam, Lexapro, Seroquel, risperidone, Topamax, trazodone. Held due to acute state as well as aspiration risk. Monitor mental status closely. Consider IV benzodiazepines if agitation or symptoms of
benzodiazepine withdrawal. Potential for multiple interactions not limited to AVIONICS INSTALLER suppression. May consider neurology/psychiatry evaluation for optimizing regimen once hemodynamically stable and able to have oral intake.
03/28:
Continue IV antibiotics, IV cefepime and discontinue vancomycin.
Discussed at length with mother at bedside today. Mother is concerned about Seroquel extended release and pindolol that he has not been able to take but after discussions she is agreeable to continue hold and will resume upon discharge hopefully
over the next 24-48 hours
Transfer out of ICU/IMU today
Increased activity as tolerated
DNR.
DVT prophylaxis heparin
Total time spent on today's encounter was 52 minutes which included time spent in counseling the patient/family regarding diagnosis and treatment plan as listed above, goals of care, and symptom management. Case was discussed with nursing staff,
specialists, and care coordinators/case management. All labs and imaging personally reviewed by me. Remainder the time spent in detailed review of previous records, lab data, imaging, and other medical provider documentation. More than 50% of time
spent in counseling and coordination
Anticipated Discharge: Within 24 hours
Subjective/Interval History
-
Date of Service: March 28, 2025
Patient seen and examined. Afebrile
Objective Data
-
Labs:
Laboratory Results
03/28/25
03:35
WBC 15.1 H
Hgb 10.9 L
Hct 31.9 L
Plt Count 196
Sodium 140
Potassium 3.7
Chloride 116 H
Carbon Dioxide 20 L
BUN 7 L
Creatinine 0.7
Glucose 124 H
Calcium 8.6
Vital Signs:
Vital Signs
Temp Pulse Resp BP Pulse Ox
98.4 F 75 11 122/81 99
03/28/25 07:45 03/28/25 10:30 03/28/25 10:30 03/28/25 10:00 03/28/25 10:30
I&O
03/27/25 03/28/25 03/29/25
06:59 06:59 06:59
Intake Total 2325 / 2450 625 / 625
Output Total 825 / 825 1950 / 1950 750 / 750
Balance -825 / -825 375 / 500 -125 / -125
--- NOTE | 2025-03-28 16:42 | PTCARENOTE ---
patient lifted back to bed by patient caregivers. repositioned. patient mother at bedside. this movie writer heard patient mother telling caregivers that she brought in patient home medications. advised mother to take medications back home and that she is
not to administer any home medications. she verbalized understanding. caregivers advised of same and they agree with plan. she then requested to talk to the hospitalist regarding patient Seroquel orders. TT sent to md to inform of her request and
above conversation
[2025-03-28] MEDS: LOVENOX 40 MG SC (17:34)
[2025-03-28] MEDS: XANAX 1 MG PO (19:59)
[2025-03-28] MEDS: XANAX 0.25 MG PO (19:59)
--- NOTE | 2025-03-28 20:00 | PTCARENOTE ---
Received pt. at 1900. Pt. currently in bed. Pt. appears alert and content. Pt. is non-verbal at baseline. Does not show any signs/symptoms of pain currently. Afebrile. Heart rhythm sinus. Blood pressure normotensive. Currently on room air. Lungs
have audible crackles at bases. Abdomen round, non-tender. Incontinent of urine. Condom catheter in place. Skin as documented. Pt. mother and private caregivers at bedside. Discussed plan of care. Vital signs stable at this time.
[2025-03-28] MEDS: MELATONIN 10 MG PO (21:16)
[2025-03-28] MEDS: SEROQUEL 100 MG PO (21:16)
[2025-03-28] MEDS: TYLENOL 325 MG PO (21:16)
[2025-03-28] MEDS: SEROQUEL 25 MG PO (21:16)
[2025-03-28] MEDS: DESYREL 50 MG PO (21:16)
--- NOTE | 2025-03-28 22:55 | PTCARENOTE ---
Received patient from ICU. His nut processing supervisor Francisco is staying overnight. Patient was pulled over to bed, assessed, vitals stable. Foams placed on sacrum, heels, elbows and left knee for protection.
[2025-03-28] MEDS: FLUSH (NSS) 1 FLUSH IV (23:08)
[2025-03-29] MEDS: STERILE WATER FOR INJECTION 10 ML IV ×4 (02:46→19:02)
[2025-03-29] MEDS: MAXIPIME 1000 MG IV ×4 (02:46→19:02)
[2025-03-29 07:22] VITALS: BP 123/93
[2025-03-29] MEDS: XANAX PO ×4 (08:34→09:06)
[2025-03-29] MEDS: TYLENOL 500 MG PO (08:35)
[2025-03-29] MEDS: TOPAMAX 50 MG PO (08:35)
[2025-03-29] MEDS: LEXAPRO 15 MG PO (08:35)
[2025-03-29] MEDS: RISPERDAL 1 MG PO (08:35)
[2025-03-29 09:08] LABS: Hematocrit 32.6 % (39.0-52.0); Hemoglobin 10.6 g/dL (13.0-18.0); Mean Corp Hgb Conc. 32.5 g/dL (33.0-37.0); Mean Corpuscular Volume 84.7 fL (80.0-94.0); Nucleated Red Blood Cells % 0 % (-); Platelet Count 186 10^3/uL (130-400); Red Cell Dist. Width 12.8 % (11.5-14.5)
--- NOTE | 2025-03-29 09:36 | PTCARENOTE ---
During AM med pass and assessment, mother of this pt came in the room beligerant and angry at staff, questioning why they were not notified of his transfer down here and complaining of the incorrect medications being given to him as well as the care
being unacceptable despite his caregiver being here overnight. Mother clearly upset at all aspects of care yelling at personal care staff. Mother demanding the doctor is in the room right now, this RN talked her down and explained that is not
possible but that I will reach out and let him know her concerns. Condom cath had fallen off, entire bed and patient changed, new condom cath placed. Mother stating he does not look like his normal. Education and emotional support provided, aware
of current situation, mother visibly less upset at this time, thankful to this RN and tech for their care this AM, no new orders at this time. MD to see patient and mother soon.
[2025-03-29 09:50] LABS: Blood Urea Nitrogen 4 mg/dl (9-20); Calcium 8.6 mg/dl (8.4-10.2); Carbon Dioxide 21 mmol/L (22-30); Chloride 116 mmol/L (98-107); Estimated Creatinine Clearance > 125 ml/min; Glucose 97 mg/dl (70-99); Potassium 3.6 mmol/L (3.5-5.1); Sodium 143 mmol/L (135-145); eGFR > 60.00
[2025-03-29] MEDS: NSS 1000 IV (10:49)
--- NOTE | 2025-03-29 12:47 | PTCARENOTE ---
Dr. Sun in room having extensive conversation with mother, medication regimen changed per her request, pt to stay one more day for IV ABX. IV fluids restarted after being previously removed because they were 'adding to the agitation' per the
mother. Pt resting comfortably in bed with caregiver at bedside reading pt a book to him, call howard at side, no new orders at this time.
[2025-03-29 13:10] VITALS: BP 136/91
--- NOTE | 2025-03-29 13:28 | W.PN.HOSP.TC ---
Today's Communication/Plan
-
Discharge planning
Assessment / Plan
Assessment / Plan
Physical exam:
General: Chronically ill
HEENT: Normocephalic, Atraumatic and Moist Mucous Membranes
Respiratory: Clear to Auscultation; Negative Wheezes, Rales or Rhonchi
Cardiac: Regular Rhythm and S1/S2
GI: Soft, Nontender and Nondistended
Musculoskeletal: Contracted, no joint effusions.
Neuro: Awake, noncommunicative as baseline, does moan and shake his head at times with questions.
Impression
Severe sepsis.
Septic shock with hypotension not responding to IV fluid bolus
Lactic acidosis
Toxic metabolic encephalopathy.
Suspect severe aspiration syndrome
Urinary retention
Conditions prior to admission
Chase disease.
Premature .
Functional quadriplegia.
Right eye blindness.
Severe malnutrition with BMI of 20
[address] chest/abdomen/pel
IMPRESSION: Multiple small nodular opacities within the left lower lobe of the lung, which is likely a small airway pneumonia.
Mild dependent atelectasis in the posterior lungs bilaterally.
The wall the urinary bladder appears mildly diffusely thickened, suggesting possibility of cystitis. Small focus of air within the right anterior bladder, most likely from instrumentation.
Mild enhancement and thickening of the wall the inferior rectum, suggestive of proctitis. The appendix appears normal with no evidence for biliary ductal dilation.
Plan
Severe sepsis with septic shock not responding to initial IV fluid bolus
Lactic acidosis.
Presentation with fever and altered mental status suggestive for toxic metabolic encephalopathy.
Possible sources most likely aspiration syndrome/aspiration pneumonia (CT with evidence of left lower lobe infiltrate)
Possible UTI given abnormal urinalysis and history of retention
Possible stercoral colitis/proctitis given chronic constipation.
Transferred to ICU
Initiated on broad-spectrum antibiotics including vancomycin and cefepime pending cultures
Strict aspiration precautions with NPO. Speech and swallow evaluation
Bladder scan, if recurrent retention, will require Johns catheter
Continue isotonic IV fluids
Given persistent hypotension, start Lavelle-Synephrine titrating to MAP 55-60
Check cortisol level. Consider pulsed dose of systemic steroids
Trend lactic acid
Construction Carpenter consultation.
Chase disease.
Mother reports premature .
Functional quadriplegia.
Preadmission neurologic regimen: Alprazolam, Lexapro, Seroquel, risperidone, Topamax, trazodone. Held due to acute state as well as aspiration risk. Monitor mental status closely. Consider IV benzodiazepines if agitation or symptoms of
benzodiazepine withdrawal. Potential for multiple interactions not limited to NURSING INFORMATICS ANALYST suppression. May consider neurology/psychiatry evaluation for optimizing regimen once hemodynamically stable and able to have oral intake.
03/28:
Continue IV antibiotics, IV cefepime and discontinue vancomycin.
Discussed at length with mother at bedside today. Mother is concerned about Seroquel extended release and pindolol that he has not been able to take but after discussions she is agreeable to continue hold and will resume upon discharge hopefully
over the next 24-48 hours
Transfer out of ICU/IMU today
Increased activity as tolerated
03/29:
It is okay to complete at least 3 days of IV antibiotics which will be tonight. His urine culture recovered Pseudomonas and Staph epidermidis.
His white blood cell count trending down to normal and he is afebrile hemodynamically stable today.
He does have multiple allergies and reactions to antibiotics therefore I think with short course of IV antibiotics will be suffice.
Mother is very eager to take him back home since she is not very happy with the care overall here in the hospital and she has very specific and unconventional way of giving his medications and treating him at home.
Planning to discharge home later this evening if patient remains stable.
DNR.
DVT prophylaxis heparin
Total time spent on today's encounter was 57 minutes which included time spent in counseling the patient/family regarding diagnosis and treatment plan as listed above, goals of care, and symptom management. Case was discussed with nursing staff,
specialists, and care coordinators/case management. All labs and imaging personally reviewed by me. Remainder the time spent in detailed review of previous records, lab data, imaging, and other medical provider documentation. More than 50% of time
spent in counseling and coordination
Anticipated Discharge: Today
Subjective/Interval History
-
Date of Service: March 29, 2025
Patient seen and examined. I was asked to see him urgently 'because mother had questions about his medications'.
Objective Data
-
Labs:
Laboratory Results
03/29/25
08:37
WBC 6.9
Hgb 10.6 L
Hct 32.6 L
Plt Count 186
Sodium 143
Potassium 3.6
Chloride 116 H
Carbon Dioxide 21 L
BUN 4 L
Creatinine 0.6 L
Glucose 97
Calcium 8.6
Vital Signs:
Vital Signs
Temp Pulse Resp BP Pulse Ox
97.6 F 76 14 136/91 99
03/29/25 13:10 03/29/25 13:10 03/29/25 13:10 03/29/25 13:10 03/29/25 13:10
I&O
03/28/25 03/29/25 03/30/25
06:59 06:59 06:59
Intake Total 2325 / 2450 1914 / 1914
Output Total 1949 / 1949 2775 / 2775 425 / 425
Balance 375 / 500 -860 / -860 -425 / -425
--- NOTE | 2025-03-29 13:42 | W.DCSUMMARY ---
Discharge Summary
Discharge Data
Date of Admission: 03/26/25
Date of Discharge: 03/29/25
Total time spent discharging patient (in min): 35
-
Pending Results: No
Hospital Course
Patient 35-year-old with history of [place]'s disease, chronic constipation, dysphagia, unable to perform ADLs without assistance, presented to the hospital with severe sepsis. Patient was treated with IV fluids, IV antibiotics. He appeared was
going to require pressors but he did not need to. His blood cultures remain sterile. His white blood cell count went down from 18,000 down to normal 6.9 today upon discharge. He was treated with IV cefepime and vancomycin and vancomycin
discontinued and kept on cefepime. His urine culture grew Pseudomonas aeruginosa and Staphylococcus epidermidis. He completed a course of 3 days of IV cefepime. He does not tolerate antibiotics very well orally and is not very clear that he will
require further antibiotic therapy at this moment. His mother who is his main caregiver is unhappy with the 'care in this hospital overall'. She is very eager to take him home or she would also sign AMA if needed but after reevaluation it appears
that he will be medically stable for discharge. He is at risk of readmissions and recurrence of infection. He appears to be also a candidate for hospice but family would like to continue restorative treatment. The etiology of his sepsis and is
not very clear but it could have been related to Pseudomonas Staph recovered in the urine. No other events were noticed. He will be discharged in relatively stable condition today.
Discharge duration: 35 minutes
Discharge Plan
-
Patient Disposition: Home (Routine Discharge)
Discharge Diagnosis/Procedures: Septic shock due to urinary tract infection. Aspiration pneumonitis. Urinary retention. Toxic metabolic encephalopathy. History of [place]'s disease. Functional quadriplegia. Severe protein
calorie malnutrition.
Additional Diets: Puree diet
Activity: As tolerated
Blood Work: Please PCP to order CBC, BMP within 1 week
Referrals:
Angelica Brower MD [Family Provider, Internal Medicine] - in less than 1 week
Prescriptions:
Continued
quetiapine [Seroquel] 25 mg Tablet
25 mg PO HS
acetaminophen [Tylenol] 325 mg Tablet
325 mg PO QHS
acetaminophen [Tylenol] 325 mg Tablet
500 mg PO Q8AM
trazodone 50 mg Tablet
50 mg PO HS
alprazolam 1 mg Tablet
1 mg PO BID
quetiapine [Seroquel] 100 mg Tablet
100 mg PO HS
alprazolam 0.25 mg Tablet
0.25 mg PO BID
risperidone 1 mg Tablet
1 mg PO BID
pindolol 5 mg Tablet
5 mg PO BID
escitalopram oxalate [Lexapro] 10 mg Tablet
15 mg PO R Q48H
Rx Instructions:
every other day
escitalopram oxalate [Lexapro] 20 mg Tablet
20 mg PO Q48H
Rx Instructions:
every other day
topiramate [Topamax] 50 mg Tablet
50 mg PO BID
melatonin 10 mg Tablet
10 mg PO HS
quetiapine 50 mg tablet extended release 24 hr
50 mg PO DAILY@1600
quetiapine 150 mg tablet extended release 24 hr
150 mg PO DAILY
Discharge Date and Time
Print Language: [place] CITIZEN
--- NOTE | 2025-03-29 14:29 | CM ---
Initial assessment completed with mother at bedside.
Pt is a 35yr old male admitted with Fever and Sepsis UTI. Pt has end-stage [place]'s Disease and is nonverbal.
Pt is complete care and all needs area anticipated. Mother is primary caregiver, and has 24hr care supplemented by [facility].
Mother is very upset that medication regimens have been altered for the medical setting.
Mother seems overwhelmed. SW offered emotional support. Per mother, hospice has been discussed a few times, but she has not been ready. SW offered and made referral to Palliative as she has not had this support up until this point.
Mother is very anxious to have pt return to home but is agreeable to one more night for IV Abx treatment.
Mother would like [facility] as well; does have full care team preference. SW encouraged her to reach out separately to her known contact for care team requests.
PCP Angelica Brower
[facility]
PLAN; home with family and 24hr care
--- NOTE | 2025-03-29 14:31 | PTCARENOTE ---
Mother repeatedly coming out of the room and insulting nursing staff. This RN educated Mother on need for last dose of abx, purpose for waiting time in between doses, and possible wait time of IV team to remove left midline IV site. Mother hesitant
and still making snarky remarks, but more appreciative than last few hours. No new orders at this time, will DC patient per MD order.
[2025-03-29 16:10] VITALS: BP 136/91
[2025-03-29] MEDS: LOVENOX SC (17:21)
--- NOTE | 2025-03-29 17:21 | PTCARENOTE ---
Discharge instructions explained to pts mother, mother went home. Pt to get last dose of IV ABX at 1900 and then midline removed for DC shortly at after.
--- NOTE | 2025-03-29 18:43 | CM ---
Patient lives with parents in a 2 story home plus basement with no steps to enter, B/B on 2nd floor. Patient is non-verbal, totally dependent. Able to stand and pivot with assist of 2. Has stair lifts, w/ch and wide bed that goes up and down. Has
24/7 caretakers through the waiver program. Discharge POC: Return home with 24/7 caregivers.
--- NOTE | 2025-03-29 20:38 | PTCARENOTE ---
Pt up for d/c. Midline removed for D/C. No resistance on removal, end intact, length intact. see EMR for details on measurements.
--- NOTE | 2025-03-31 08:52 | CM ---
Patient discharged home on 03/29/25 with resumption of Waiver services for 08/01 caretakers. Family arranged for transport home.
== END 2025-03-29 20:51 | disposition home or self-care (01) | DRG 871 ==
LOC: 2 NORTH 23:37
PROVIDERS: Internal Medicine; Nurse Practitioner Family; ADMITTING PHYSICIAN Internal Medicine; ATTENDING PHYSICIAN Hospitalist; CONSULT PHYSICIAN Internal Medicine Critical Care Medicine; EMERGENCY PHYSICIAN Emergency Medicine; FAMILY PHYSICIAN Internal Medicine
DX: A41.9 Sepsis, unspecified organism (principal); E43 Unspecified severe protein-calorie malnutrition; G92.8 Other toxic encephalopathy; J69.0 Pneumonitis due to inhalation of food and vomit; R65.21 Severe sepsis with septic shock; R53.2 Functional quadriplegia; N39.0 Urinary tract infection, site not specified; G10 Huntington's disease; J98.11 Atelectasis; E87.20 Acidosis, unspecified; L05.01 Pilonidal cyst with abscess; Z68.20 Body mass index [BMI] 20.0-20.9, adult; B96.5 Pseudomonas (aeruginosa) (mallei) (pseudomallei) as the cause of diseases classified elsewhere; K59.09 Other constipation; K59.00 Constipation, unspecified; Z66 Do not resuscitate; Z79.899 Other long term (current) drug therapy; Z11.52 Encounter for screening for COVID-19
CPT/HCPCS: 51798; 71045; 71260; 74177; 80048; 80053; 81003; 81015; 82962; 83605; 84443; 85025; 85027; 87040; 87070; 87077; 87086; 87147; 87186; 87502; 87811; 92610; 93005; 96365; 96366; 96375; 99285; Q9967